=== PATIENT | female | born 1970 | race Caucasian/White ===

== ENCOUNTER 2019-09-28 14:27 | Emergency (ER) | payer OTHER ==
[~2019-09-28] VITALS: Ht 170.2 cm; Wt 54.4 kg
[2019-09-28] MEDS ORDERED: KEFLEX500 MG PO (17:18)
== END 2019-09-28 17:38 | disposition home or self-care (01) ==
LOC: ED 14:27
DX: S71.112A Laceration without foreign body, left thigh, initial encounter (principal); Z88.1 Allergy status to other antibiotic agents; W45.8XXA Other foreign body or object entering through skin, initial encounter
CPT/HCPCS: 12032; 73552; 90471; 90715; 99283-25; J0690